=== PATIENT | male | born 1980 | race Caucasian/White ===

== ENCOUNTER 2021-09-23 18:42 | Emergency (ER) | payer SELFPAY ==
[~2021-09-23] VITALS: Ht 162.6 cm; Wt 97.1 kg
[2021-09-23 18:57] VITALS: BP 131/74
--- NOTE | 2021-09-23 19:16 | NUR ---
urine specimen in dirty utility
--- NOTE | 2021-09-23 22:20 | NUR ---
TO BED 12 FROM LOBBY
[2021-09-23] MEDS: KETOROLAC 60 MG/2 ML VIAL IM ONE (23:41)
--- NOTE | 2021-09-23 23:48 | NUR ---
pt wheelchaired to xray
[2021-09-24] MEDS ORDERED: IBUP-2213 PO (00:59)
[2021-09-24 01:38] VITALS: BP 122/72
[2021-09-24] MEDS: MAGNESIUM CITRATE 300 ML BTL PO ONE (01:38)
== END 2021-09-24 01:22 | disposition home or self-care (01) ==
LOC: MED 18:42
DX: G89.29 Other chronic pain (principal); M54.50 Low back pain, unspecified; Z79.899 Other long term (current) drug therapy
CPT/HCPCS: 72110; 96372; 99283; J1885; Q0092